=== PATIENT | female | born 1965 ===

== ENCOUNTER 2022-02-04 09:30 | Inpatient (IN) | payer OTHER ==
[~2022-02-04] VITALS: Ht 165.1 cm; Wt 69.9 kg
[2022-02-04] MEDS ORDERED: ARIMIDEX PO (10:51)
[2022-02-04] MEDS ORDERED: BONIVA150 MG PO (10:51)
[2022-02-04] MEDS ORDERED: OMEPRAZOLE-BIC1 EAC1 PO (10:52)
[2022-02-04] MEDS ORDERED: VITAMIN D3 PO (10:52)
[2022-02-10] MEDS ORDERED: INTESTINEX680 M1 PO (07:22)
[2022-02-10] MEDS ORDERED: PROTONIX40 M1 PO (07:22)
[2022-02-10] MEDS ORDERED: MIRALAX17 GM PO (07:23)
[2022-02-10] MEDS ORDERED: NEURONTIN300 MG PO (07:23)
== END 2022-02-10 12:09 | disposition home or self-care (01) | DRG 330 ==
LOC: O/R 02-07 08:05 → SURG 02-07 09:30
PROVIDERS: ADMIT Surgery; ATTEND Surgery
PROC: 0DBP4ZZ Excision of Rectum, Percutaneous Endoscopic Approach (ICD-10-PCS; 2022-02-07)
PROC: 0DTN4ZZ Resection of Sigmoid Colon, Percutaneous Endoscopic Approach (ICD-10-PCS; principal; 2022-02-07 11:00)
DX: K57.20 Diverticulitis of large intestine with perforation and abscess without bleeding (principal); N32.1 Vesicointestinal fistula; K59.00 Constipation, unspecified; Z20.822 Contact with and (suspected) exposure to COVID-19

== ENCOUNTER 2023-01-05 12:05 | Emergency (ER) | payer OTHER ==
[~2023-01-05] VITALS: Ht 165.1 cm; Wt 71.7 kg
[~2023-01-05 12:05] MED LIST: ARIMIDEX PO; BONIVA150 MG PO; INTESTINEX680 M1 PO; MIRALAX17 GM PO; NEURONTIN300 MG PO; OMEPRAZOLE-BIC1 EAC1 PO; PROTONIX40 M1 PO; VITAMIN D3 PO
[2023-01-05] MEDS ORDERED: PEPCID AC20 MG PO (17:17)
[2023-01-05] MEDS ORDERED: DICY20TA PO (17:17)
[2023-01-05] MEDS ORDERED: INTESTINEX680 M1 PO (17:17)
[2023-01-05] MEDS ORDERED: CIPRO500 MG PO (17:17)
== END 2023-01-05 17:28 | disposition home or self-care (01) ==
LOC: ER 12:05
DX: R10.32 Left lower quadrant pain (principal); Z91.048 Other nonmedicinal substance allergy status